=== PATIENT | female | born 1965 | race Caucasian/White ===

== ENCOUNTER → 2017-04-03 | Outpatient (CLI) | payer OTHER ==
[2017-04-03] MEDS: GADOBUTROL 10 MMOL/10 ML VIAL IV ×2 (14:35)
== END | disposition home or self-care (01) ==
LOC: KCIC MRI 13:45
DX: H50.9 Unspecified strabismus (principal)
CPT/HCPCS: 70553; 82565; A9585

== ENCOUNTER → 2017-05-25 | Outpatient (CLI) | payer OTHER ==
[2017-05-25] MEDS: IOHEXOL 300 MG/ML 100ML VIAL. IV (10:35)
== END | disposition home or self-care (01) ==
LOC: KCIC CT 09:32
DX: H53.2 Diplopia (principal); R42 Dizziness and giddiness
CPT/HCPCS: 70496; 70498; Q9967

== ENCOUNTER → 2018-01-27 | Day surgery (SDC) | payer OTHER ==
[~2018-01-27] MED LIST: CLON0.5T11 PO; FEXO180T81 PO; IV RINGERS,LACTATED 1000ML 1,000 ML IV SCH; LEVO75TA5 PO; LISI1TAB7 PO; METF500T16 PO; PROPOFOL 40 ML IV ONE; ROPI0.5T PO; SPIR25TA5 PO; VENL75CA PO
[2018-01-27 08:58] VITALS: BP 118/70
== END | disposition home or self-care (01) ==
LOC: ENDOS 07:07
PROVIDERS: ATTEND Internal Medicine Gastroenterology
DX: Z12.11 Encounter for screening for malignant neoplasm of colon (principal); K64.0 First degree hemorrhoids; K21.9 Gastro-esophageal reflux disease without esophagitis; E11.9 Type 2 diabetes mellitus without complications; I10 Essential (primary) hypertension; E78.00 Pure hypercholesterolemia, unspecified; Z82.3 Family history of stroke; Z82.49 Family history of ischemic heart disease and other diseases of the circulatory system; Z79.84 Long term (current) use of oral hypoglycemic drugs; Z98.51 Tubal ligation status; Z87.19 Personal history of other diseases of the digestive system; Z79.899 Other long term (current) drug therapy
CPT/HCPCS: 45378; J2704

== ENCOUNTER 2018-07-02 20:36 | Emergency (ER) | payer OTHER ==
[~2018-07-02] VITALS: Ht 170.2 cm; Wt 92.5 kg
[~2018-07-02 20:36] MED LIST changes: -IV RINGERS,LACTATED 1000ML 1,000 ML IV SCH; -PROPOFOL 40 ML IV ONE
[2018-07-02 21:30] LABS: INFLUENZA A PATIENT NEGATIVE (NEGATIVE); INFLUENZA B PATIENT NEGATIVE (NEGATIVE)
[2018-07-02 21:38] VITALS: BP 153/100
[2018-07-02] MEDS ORDERED: AZIT1PAC9 PO (22:05)
[2018-07-02] MEDS ORDERED: PRED20TA PO (22:05)
--- NOTE | 2018-07-02 22:05 | PHYS DOC ---
Past Medical History Past Medical History: No Pertinent History (SHEREE GIRON) Past Surgical History: No Surgical History (SHEREE GIRON) Alcohol Use: None Drug Use: None (SHEREE GIRON) Adult General Chief Complaint Chief Complaint: Congestion HPI HPI Patient is a 52 year old with cough, congestion, sore throat, ear pain for 3 days. (SHEREE GIRON) Review of Systems Review of Systems Constitutional: Denies fever. Reports chills. HENT: Reports nasal congestion, sore throat and ear pain. Respiratory: Reports cough. Cardiovascular: Denies chest pain GI: Denies abdominal pain, vomiting, bloody stools or diarrhea. Reports nausea. : Denies dysuria or hematuria Musculoskeletal: Denies back pain or joint pain. Reports muscle aches. Integument: Denies rash or skin lesions Neurologic: Denies headache, focal weakness or sensory changes All other systems were reviewed and found to be within normal limits, except as documented in this note. (SHEREE GIRON) Allergies Allergies Allergies Coded Allergies Type Severity Reaction Last Updated Verified No Known Drug Allergies 01/27/18 No (KEDAR MALCOLM MD) Physical Exam Physical Exam Constitutional: Well developed, well nourished, no acute distress, non-toxic appearance. HENT: Normocephalic, atraumatic, bilateral external ears normal, no oral exudates. Clear nasal drainage noted, oropharynx erythematous. Eyes: PERRLA, EOMI, conjunctiva normal, no discharge. Neck: Normal range of motion, no tenderness, supple, no stridor. Cardiovascular:Heart rate regular rhythm, no murmur Lungs & Thorax: Bilateral breath sounds clear to auscultation Abdomen: Bowel sounds normal, soft, no tenderness, no masses, no pulsatile masses. Skin: Warm, dry, no erythema, no rash. Back: No tenderness, no CVA tenderness. Extremities: No tenderness, no cyanosis, no clubbing, ROM intact, no edema. Neurologic: Alert and oriented X 3, normal motor function, normal sensory function, no focal deficits noted. Psychologic: Affect normal, judgement normal, mood normal. (SHEREE GIRON) Current Patient Data Vital Signs Vital Signs Date Time Temp Pulse Resp B/P (MAP) Pulse Ox O2 Delivery O2 Flow Rate FiO2 07/02/18 21:38 93 18 153/100 (117) 99 Room Air 07/02/18 20:52 98.6 98.6 (KEDAR MALCOLM MD) Lab Values Laboratory Tests Test 07/02/18 21:00 Influenza Type A Antigen Negative (NEGATIVE) Influenza Type B Antigen Negative (NEGATIVE) Group A Streptococcus Rapid Negative (NEGATIVE) Microbiology 07/02/18 Throat Culture - Final, Complete 07/02/18 - Final, Complete (KEDAR MALCOLM MD) EKG EKG [] (SHEREE GIRON) Radiology/Procedures Radiology/Procedures CXR: neg (SHEREE GIRON) Course & Med Decision Making Course & Med Decision Making Pertinent Labs and Imaging studies reviewed. (See chart for details) Pt's labs negative, CXR negative. Discussed bronchitis, pharyngitis and otalgia. Pt to rest, push fluids and follow up with PCP. Return to ER with any worsening of symptoms. (SHEREE GIRON) Course & Med Decision Making Staff Physician Addendum: I was working in the ER during the course of this patient's visit. I was available for consultation as needed, but I was not directly involved in the care of this patient. (KEDAR MALCOLM MD) Dragon Disclaimer Dragon Disclaimer This electronic medical record was generated, in whole or in part, using a voice recognition dictation system. (SHEREE GIRON) Departure Departure Impression: Primary Impression: Bronchitis Additional Impression: Pharyngitis Disposition: 01 HOME, SELF-CARE Condition: STABLE Referrals: NATANAEL WELLINGTON APRN (PCP) Patient Instructions: Acute Bronchitis, [id number], Viral and Bacterial Pharyngitis, [id number] Additional Instructions: Push fluids, rest, continue over the counter cold and cough remedies. Scripts Prednisone (PREDNISONE) 20 Mg Tablet 1 TAB PO BID, #10 TAB Prov: SHEREE GIRON 07/02/18 Azithromycin (AZITHROMYCIN PACKET) 1 Gm Packet 1 PACKET PO ONCE, #1 PACKET Prov: SHEREE GIRON 07/02/18 Problem Qualifiers SHEREE GIRON July 02, 2018 22:05 KEDAR MALCOLM MD July 11, 2018 21:21
--- NOTE | 2018-07-03 05:42 | RAD ---
PROCEDURE: CHEST PA LATERAL CLINICAL INDICATION: Cough and congestion COMPARISON: None FINDINGS: No pneumothorax identified. Cardiac and mediastinal contours unremarkable. No pulmonary consolidation or acute airspace disease. No acute osseous abnormalities identified. IMPRESSION: No pulmonary consolidation or acute airspace disease. Electronically signed by: Vicente Lora DO (07/03/2018 5:39 AM) [id number]
== END 2018-07-02 22:08 | disposition home or self-care (01) ==
LOC: ER 20:36
DX: J40 Bronchitis, not specified as acute or chronic (principal); J02.9 Acute pharyngitis, unspecified
CPT/HCPCS: 71046; 87070; 87804; 87880; 99285-25

== ENCOUNTER → 2018-08-25 | Outpatient (CLI) | payer OTHER ==
[~2018-08-25] MED LIST changes: +AZIT1PAC9 PO; +PRED20TA PO
--- NOTE | 2018-08-26 15:56 | RAD ---
DATE: 08/25/2018 EXAM: MAMMO JENNIFER SCREENING BILATERAL HISTORY: Routine screening COMPARISON: 05/26/2017 This study was interpreted with the benefit of Computerized Aided Detection (CAD). Breast Density: SCATTERED The breast parenchyma shows scattered fibroglandular densities. Breast parenchyma level B. FINDINGS: 2-D and 3-D tomosynthesis imaging was performed in CC and MLO projections. There is a small nodule projected over the medial aspect of the right breast on the cc view which was not evident on the previous study. The tomosynthesis images suggests that this lies in the upper inner quadrant. It is not clearly visualized on the oblique views. No other new or enlarging breast densities are seen. No suspicious microcalcifications are evident. IMPRESSION: Probable small right breast nodule as described above. Spot compression cc and straight mediolateral views are suggested for further evaluation. If a suspicious density persists, right breast ultrasound would be indicated. BI-RADS CATEGORY: 0 INCOMPLETE: NEEDS ADDITIONAL IMAGING EVALUATION AND/OR PRIOR MAMMOGRAMS FOR COMPARISON. RECOMMENDED FOLLOW-UP: ADD ADDITIONAL IMAGING PQRS compliance statement: Patient information was entered into a reminder system with a target due date for the next mammogram. Mammography is a sensitive method for finding small breast cancers, but it does not detect them all and is not a substitute for careful clinical examination. A negative mammogram does not negate a clinically suspicious finding and should not result in delay in biopsying a clinically suspicious abnormality. "Our facility is accredited by the [employer] Mammography Program."
== END | disposition home or self-care (01) ==
LOC: MAMMO 10:00
PROVIDERS: ATTEND Nurse Practitioner
DX: Z12.31 Encounter for screening mammogram for malignant neoplasm of breast (principal)
CPT/HCPCS: 77063; 77067

== ENCOUNTER → 2019-07-05 | Outpatient (CLI) | payer OTHER ==
[~2019-07-05] MED LIST changes: +CLON-77 PO; -CLON0.5T11 PO; +LISI1TAB20 PO; -LISI1TAB7 PO
--- NOTE | 2019-07-05 14:25 | RAD ---
Examination: Right digital diagnostic mammogram INDICATION: Short-term follow-up probably benign nodule in the medial right breast recalled from screening last year. COMPARISON: Right digital diagnostic mammogram and targeted breast ultrasound of 09/27/2018, bilateral screening mammograms of 08/28/2018, 05/26/2017 and 05/20/2016. TECHNIQUE: 2-D CC, MLO and full-field ML views along with CC rolled medial CC rolled lateral views were obtained in addition to 3-D CC and MLO views of the right breast. Images were reviewed with computer-aided detection. FINDINGS: Scattered fibronodular densities. The questioned nodular asymmetry recalled from screening last year in the medial right breast changed configuration in a pattern consistent with overlap of fibroglandular tissue. There was no persistent mammographic abnormality. Ultrasound was therefore not pursued in further evaluation at this visit. No developing mass, architectural distortion or suspicious calcifications. IMPRESSION: Negative right diagnostic mammogram. No evidence of malignancy. BI-RADS Category 1 Negative Recommend return to routine screening next due in 2 months. Patient entered into a reminder system with target due date for next mammogram. BI-RADS 1 -- negative findings (within normal)
== END | disposition home or self-care (01) ==
LOC: MAMMO 13:26
PROVIDERS: ATTEND Nurse Practitioner
DX: R92.8 Other abnormal and inconclusive findings on diagnostic imaging of breast (principal)
CPT/HCPCS: 77065; G0279; 77061

== ENCOUNTER → 2020-12-12 | Outpatient (CLI) | payer OTHER ==
--- NOTE | 2020-12-12 17:13 | RAD ---
Bilateral digital screening 2-D and 3-D (digital breast tomosynthesis) mammogram: Reason for examination: Routine screening. Comparison: Mammograms from 07/05/2019 and 09/27/2018. Interpretation was made with the benefit of CAD. FINDINGS: Breast density: Category B. There are scattered areas of fibroglandular density. No suspicious breast mass, malignant appearing calcifications, or architectural distortion is seen. IMPRESSION: No evidence of malignancy. Assessment: BI-RADS 1. Negative. Recommendation: Routine screening mammograms. The patient will receive a letter with the results in the mail. Patient information will be entered i nto the mammography reminder system with a target recall date for the next mammogram. A reminder cecilia er will be generated. Electronically signed by: Georgina Garland MD (12/12/2020 5:10 PM) [id number]
== END ==
LOC: MAMMO 10:51
PROVIDERS: ATTEND Nurse Practitioner
DX: Z12.31 Encounter for screening mammogram for malignant neoplasm of breast (principal)
CPT/HCPCS: 77063; 77067